=== PATIENT | female | born 1975 | race African-American/Black ===

== ENCOUNTER 2020-04-20 17:40 | Emergency (ER) | payer MEDICAID, OTHER ==
[2020-04-20] MEDS ORDERED: HYDROcodone/Acetaminophen 10/325 mg Tablet ONE (17:57)
[2020-04-20] MEDS ORDERED: Lidocaine 2% PF 5 ML VIAL ONE (18:10)
[2020-04-20] MEDS ORDERED: Bacitracin 1 PK ONE (18:42)
[2020-04-20] MEDS ORDERED: Amoxicillin/Potassium Clav 875 MG TAB ONE (18:49)
--- NOTE | 2020-04-21 07:09 | RAD ---
RIGHT HAND 3 VIEWS: Date: 04/20/2020 No fracture or opaque foreign body was seen. All bones appear intact. IMPRESSION: No acute findings. POS: HOME
--- NOTE | 2020-04-21 07:09 | RAD ---
LEFT HAND 3 VIEWS: Date: 04/20/2020 Comparison is made with the right hand. No fracture or opaque foreign body seen. All bones appear intact. IMPRESSION: No acute findings. POS: HOME
== END 2020-04-20 18:55 | disposition home or self-care (01) ==
LOC: BURERS 17:40
DX: S61.452A Open bite of left hand, initial encounter (principal); S61.451A Open bite of right hand, initial encounter; J44.9 Chronic obstructive pulmonary disease, unspecified; F17.210 Nicotine dependence, cigarettes, uncomplicated; F31.9 Bipolar disorder, unspecified; Z79.899 Other long term (current) drug therapy; W54.0XXA Bitten by dog, initial encounter
CPT/HCPCS: 12002; J2001

== ENCOUNTER 2023-09-05 13:46 | Emergency (ER) | payer OTHER | END 2023-09-05 14:17 | disposition home or self-care (01) | LOC: BURERS 13:46 | DX: K03.81 Cracked tooth (principal); J44.9 Chronic obstructive pulmonary disease, unspecified; F17.210 Nicotine dependence, cigarettes, uncomplicated | CPT/HCPCS: 99282 ==

== ENCOUNTER 2025-08-14 11:54 | Emergency (ER) | payer OTHER | END 2025-08-14 12:16 | disposition home or self-care (01) | LOC: BURERS 11:54 | DX: H60.91 Unspecified otitis externa, right ear (principal); J44.9 Chronic obstructive pulmonary disease, unspecified; F17.210 Nicotine dependence, cigarettes, uncomplicated | CPT/HCPCS: 99282 ==